=== PATIENT | female | born 1995 | race Caucasian/White ===

== ENCOUNTER 2019-05-12 09:03 | Emergency (ER) | payer OTHER ==
[~2019-05-12 09:03] MED LIST: ALLEGRA180 MG PO; AMOXICILLIN/CL875 MG PO; AMOXICILLIN500 MG PO; AMOXICILLIN875 MG PO; BENADRYL1 CRE EX; BENADRYL25 MG OR; CLARITIN10 M1 PO; CORTISPORIN OTI10 ML AD; FLONASE NASAL50 MCG; FLUTICASONE50 MCG; HYDROXYZ HCL25 MG PO; KENALOG15 G1 EX; LORTAB 5/3255 MG PO; MEDDOSEPAK OR; NAPROSYN500 MG PO; NO; NO HOME MEDS; PRE-NATAL PO; PREDNISO30ODT PO; PREDNISONE10 MG PO; TRIAMIN12 OR; TYLENOL PM PO
[2019-05-12 09:28] LABS: MEAN CORPUSCULAR HGB CONC 32.5 g/L CALC (32.0-36.0); NEUT# 16.11 thou/uL (2.00-7.15); RED BLOOD COUNT 4.52 mill/uL (4.20-5.60); RED CELL DISTRI WIDTH 20.6 % (11.5-15.5)
[2019-05-12 09:30] LABS: HEMATOCRIT 37.5 % (37.0-47.0); HEMOGLOBIN 12.2 g/dl (12.0-16.0)
[2019-05-12 09:38] LABS: BUN 5 mg/dL (7-17); BUN/CREATININE RATIO 11 (12-20 (CALC)); CARBON DIOXIDE 20 mmol/l (22-30); CHLORIDE 106 mmol/l (95-108); CREATININE 0.4 mg/dL (0.5-1.0); GFR > 60 ML/MIN (>=60 (CALC)); GFR FOR AFR.AMER. > 60 ML/MIN (>=60 (CALC)); SODIUM 137 mmol/l (137-146)
[2019-05-12 09:40] LABS: ANION GAP 15 (6-22 (CALC)); POTASSIUM 4.1 mmol/l (3.5-5.1)
[2019-05-12 10:38] VITALS: BP 126/84
== END 2019-05-12 11:44 ==
LOC: ED 09:03
PROVIDERS: Family Medicine
DX: O42.013 Preterm premature rupture of membranes, onset of labor within 24 hours of rupture, third trimester (principal); O70.0 First degree perineal laceration during delivery; Z3A.34 34 weeks gestation of pregnancy; Z37.0 Single live birth

== ENCOUNTER 2023-07-04 11:12 | Emergency (ER) | payer BC ==
[2023-07-04] VITALS (8 sets, daily range): BP systolic 95–130; BP diastolic 60–67
[~2023-07-04] VITALS: Ht 170.2 cm; Wt 58.9 kg
[~2023-07-04 11:12] MED LIST changes: +OMNI-PAC300 MG PO
[2023-07-04 11:52] LABS: BASO% 0.2 % (0-3); EOS% 0.7 % (0-8); HEMATOCRIT 36.3 % (37.0-47.0); IMMATURE GRANULOCYTES 0.4 % (0.0-5.0); LYMPH% 13.3 % (15-41); MEAN CELL VOLUME 96.5 fL CALC (80.0-100.0); MEAN CORPUSCULAR HGB 31.9 pG CALC (26.0-32.0); MEAN CORPUSCULAR HGB CONC 33.1 g/dL CAL (32.0-36.0); NEUT# 11.01 thou/uL (2.00-7.15); NEUT% 80.4 % (42-76); RED BLOOD COUNT 3.76 mill/uL (4.20-5.60); RED CELL DISTRI WIDTH 12.9 % (11.5-15.5)
[2023-07-04 12:10] LABS: ALBUMIN 3.1 g/dL (3.2-5.0); ALKALINE PHOSPHATASE 75 u/l (38-126); ANION GAP 10 (6-22 (CALC)); BUN 8 mg/dL (7-17); BUN/CREATININE RATIO 17 (12-20 (CALC)); CARBON DIOXIDE 23 mmol/l (22-30); CHLORIDE 107 mmol/l (95-108); CREATININE 0.5 mg/dL (0.5-1.0); GFR FOR AFR.AMER. > 60 ML/MIN (>=60 (CALC)); GFR OTHER RACES > 60 ML/MIN (>=60 (CALC)); POTASSIUM 3.8 mmol/l (3.5-5.1); SGOT/AST 22 u/l (14-36); SODIUM 136 mmol/l (137-146)
[2023-07-04 12:32] LABS: BILIRUBIN, TOTAL 0.2 mg/dL (0.02-1.3)
[2023-07-04 12:38] LABS: URINE BILIRUBIN - DIPSTICK Negative (NEGATIVE); URINE BLOOD DIPSTICK Negative (NEGATIVE); URINE GLUCOSE - DIPSTICK Negative (NEGATIVE); URINE KETONE Negative (NEGATIVE); URINE NITRITE - DIPSTICK Negative (Negative); URINE PH 6.5 (4.5-8.0); URINE PROTEIN - DIPSTICK Negative (NEG-TRACE); URINE UROBILINOGEN - DIPSTICK 0.2 E.U./dL (0.2)
[2023-07-04 12:39] LABS: URINE COLOR Yellow
[2023-07-04 12:40] LABS: URINE LEUK ESTERASE Small (NEGATIVE)
[2023-07-04 12:43] LABS: URINE BACTERIA FEW hpf
[2023-07-04 12:49] LABS: URINE SQUAMOUS EPITHELIAL CELL MODERATE EPI/hpf (0-FEW)
== END 2023-07-04 13:58 | disposition short-term general hospital (02) | DRG 833 ==
LOC: ED 11:12
PROVIDERS: Family Medicine
DX: O60.02 Preterm labor without delivery, second trimester (principal); Z3A.25 25 weeks gestation of pregnancy